=== PATIENT | male | born 1985 | race African-American/Black ===

== ENCOUNTER 2022-04-25 13:41 | Emergency (ER) | payer MEDICAID ==
[~2022-04-25] VITALS: Ht 180.3 cm; Wt 80.0 kg
[2022-04-25 16:20] LABS: CLARITY URINE CLOUDY (CLEAR); COLOR URINE ORANGE (YELLOW); KETONES URINE NEGATIVE (NEGATIVE); LEUKOCYTE ESTERASE URINE 3+ (NEGATIVE); NITRITE URINE NEGATIVE (NEGATIVE); OCCULT BLOOD URINE 3+ (NEGATIVE); PROTEIN URINE TRACE (NEGATIVE); SPECIFIC GRAVITY URINE 1.014 (1.005-1.030); UROBILINOGEN URINE 0.2 E.U./dL (0.2-1.0)
[2022-04-25 16:29] LABS: EOSINOPHILS % 5.4 % (0.0-5.0); HEMOGLOBIN. 14.2 g/dL (14.0-18.0); LYMPHOCYTES % 23.6 % (20.0-50.0); MEAN CORPUSCULAR HEMOGLOBIN 31.8 pg (28.0-32.0); MEAN PLATELET VOLUME 10.9 fl (7.4-10.4); PLATELET 164 x1000/uL (130-400); RED BLOOD CELL COUNT 4.47 mill/uL (4.7-6.1); RED CELL DISTRIBUTION WIDTH 13.3 % (11.6-14.6)
[2022-04-25 16:34] LABS: CHLORIDE 107 mEq/L (98-107)
[2022-04-25] MEDS ORDERED: CEPH500T MT (17:10)
[2022-04-25] MEDS ORDERED: CEFTRIAXONE SODIUM 1 G/VIAL IM ONE (17:15)
[2022-04-25] MEDS ORDERED: AZIT500T8 MT (17:38)
[2022-04-25 17:40] VITALS: BP 108/78
[2022-04-28 07:12] LABS: NEISSERIA GONORRHOEAE NAA Positive (Negative)
== END 2022-04-25 17:41 | disposition home or self-care (01) ==
LOC: ER 13:41
DX: A56.01 Chlamydial cystitis and urethritis (principal); A54.01 Gonococcal cystitis and urethritis, unspecified; N39.0 Urinary tract infection, site not specified; R31.0 Gross hematuria; Z91.19 Patient's noncompliance with other medical treatment and regimen
CPT/HCPCS: 36415; 80053; 81003; 85025; 87086; 87491; 87591; 96372; 99283; J0696